=== PATIENT | male | born 1960 | race Caucasian/White ===

== ENCOUNTER 2017-10-14 15:07 | Emergency (ER) | payer OTHER ==
[2017-10-14] MEDS ORDERED: ALBUTEROL SO4 2.5/IPRATROPIUM 0.5 INH SOL 3 ML VIAL.NEB. NEB ONE ×2 (15:51→16:14)
--- NOTE | 2017-10-14 15:51 | PDOC ---
Rapid Medical Evaluation Time Seen by Provider: 10/14/17 15:46 Medical Evaluation: Allergies Allergy/AdvReac Type Severity Reaction Status Date / Time No Known Allergies Allergy Verified 09/11/15 12:09 10/14/17 15:46 I have performed a brief in-person evaluation of this patient. The patient presents with a chief complaint of: cold x several weeks, worse since saturday, saw PMD saturday and given methylpred, tessalon perles, albuterol, promethazine but not helping, was supposed to get x-rays but "place i went to x- ray machine wasn't working" Pertinent physical exam findings: cough, lungs tight I have ordered the following: CXR, duo neb The patient will proceed to the ED for further evaluation. Discharge Disposition - Diagnosis Cough - Referrals - Patient Instructions - Post Discharge Activity
[2017-10-14 15:54] VITALS: BP 155/75; PULSE 87; TEMP 98; BMI 24.3
--- NOTE | 2017-10-14 16:24 | PDOC ---
History of Present Illness - General Chief Complaint: Cold Symptoms Stated Complaint: CONGESTION, COUGH Time Seen by Provider: 10/14/17 15:46 History Source: Patient Exam Limitations: No Limitations - History of Present Illness Initial Comments: 10/14/17 16:24 Dates was seen by his PMD approximate 3 weeks ago, diagnosed with strep throat and given antibiotics for same. Also had issue with his teeth a few days later where he was seen by the dentist and prescribed amoxicillin which she completed that course as of 2 days ago. States over the same course of 3 weeks has persistent cough, shortness of breath, and mild bronchospasm. Returned to his PMD and received prescriptions for Proventil inhalers, Promethazine DM, Tessalon Perles, and a Medrol Dosepak which she has been taking now for approximately 3-4 days. Patient states coughed discontinued and went for chest x -ray at a facility that machinery was broken. Was advised by his PMD to come to emergency department to obtain this chest x-ray and reevaluation of persistent cough. Denies fever, denies any earache or sore throat pain. No one else at home sick. Patient is a business intelligence consultant for the [employer] Timing/Duration: reports: constant, changing over time, intermittent Associated Symptoms: reports: chest pain/soreness, cough, facial pain, fever/ chills, nasal congestion, nasal drainage Past History - Travel Traveled outside of the country in the last 30 days: No Close contact w/someone who was outside of country & ill: No - Past Medical History Allergies/Adverse Reactions: Allergies Allergy/AdvReac Type Severity Reaction Status Date / Time No Known Allergies Allergy Verified 09/11/15 12:09 Home Medications: Ambulatory Orders Albuterol Sulfate [Proair Hfa -] 1 - 2 inh PO TID 09/11/15 Benzonatate [Tessalon Pearls -] 100 mg PO TID 10/14/17 Methylprednisolone [Medrol Dose Al] 4 mg PO ASDIR 10/14/17 Promethazine HCl/Codeine [Prometh-Codein 6.25-10 mg/5 ml] 5 ml PO TID 10/14/17 CVA: Yes (TIA) COPD: No - Immunization History Immunization Up to Date: Yes - Suicide/Smoking/Psychosocial Hx Smoking Status: No Smoking History: Never smoked Have you smoked in the past 12 months: No Number of Cigarettes Smoked Daily: 0 Information on smoking cessation initiated: No Hx Alcohol Use: No Drug/Substance Use Hx: No Substance Use Type: None Review of Systems - Review of Systems Able to Perform ROS?: Yes Is the patient limited Fijian proficient: Yes Constitutional: Yes: Symptoms Reported, See HPI, Malaise. No: Fever HEENTM: Yes: Symptoms Reported, See HPI, Nose Congestion, Throat Pain Respiratory: Yes: Symptoms reported, See HPI, Cough. No: Wheezing ABD/GI: Yes: Symptoms Reported Musculoskeletal: Yes: Symptoms Reported All Other Systems: Reviewed and Negative *Physical Exam - Vital Signs Last Vital Signs Temp Pulse Resp BP Pulse Ox 98 F 87 20 155/75 97 10/14/17 15:51 10/14/17 15:51 10/14/17 15:51 10/14/17 15:51 10/14/17 15:51 - Physical Exam General Appearance: Yes: Nourished, Appropriately Dressed HEENT: positive: [place], Normal ENT Inspection, TMs Normal, Pharynx Normal, Rhinorrhea, Sinus Tenderness Neck: positive: Tender, Supple, Lymphadenopathy (R), Lymphadenopathy (L) Respiratory/Chest: positive: Lungs Clear, Normal Breath Sounds. negative: Wheezing Cardiovascular: positive: Regular Rate Gastrointestinal/Abdominal: positive: Soft. 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 Chest x-ray is negative for any infiltrates. Will have continue treatment *DC/Admit/Observation/Transfer Diagnosis at time of Disposition: Cough - Discharge Dispostion Disposition: HOME Condition at time of disposition: Stable Admit: No - Referrals Referrals: ON STAFF,NOT [Primary Care Provider] - - Patient Instructions Printed Discharge Instructions: DI for Viral Upper Respiratory Infection -- Adult Additional Instructions: Rest, drink lots of fluids: Teas, water, soups, Pedialyte Saltwater gargles Steamy showers/seem to face break up mucus Avoid contact with others until fevers and cough resolved Lots of handwashing and good hygiene Continue [id number] medications for symptomatic relief Tylenol or Motrin for fever and pain Continue albuterol nebulizers every 4-6 hours for the next 2 days then as needed for continued cough Prednisone as directed until completed Continue promethazine with codeine for severe cough Followup with private physician in one to 2 days Return to emergency department / pediatric hospital for worsened symptoms, fevers, dehydration - Post Discharge Activity Forms/Work/School Notes: Back to Work
== END 2017-10-14 17:33 | disposition home or self-care (01) ==
LOC: JERFT 15:07
PROC: 3E0F7GC Introduction of Other Therapeutic Substance into Respiratory Tract, Via Natural or Artificial Opening (ICD-10-PCS; principal; 2017-10-14)
DX: R05 Cough (principal); Z86.73 Personal history of transient ischemic attack (TIA), and cerebral infarction without residual deficits
CPT/HCPCS: 71046-TC-FY; 99281-25

== ENCOUNTER 2017-11-21 10:25 | Emergency (ER) | payer OTHER ==
[2017-11-21 10:32] VITALS: BP 136/80; PULSE 106; TEMP 99; BMI 29.2
[2017-11-21] MEDS ORDERED: ONDANSETRON 4 MG/2 ML VIAL IVPUSH ONE (12:07)
[2017-11-21] MEDS ORDERED: SODIUM CHLORIDE 1,000 ML IV ONE (12:07)
[2017-11-21] MEDS ORDERED: FAMOTIDINE 20 MG/50 ML IVPB 20 MG/50 ML MG IVPB ONE ×2 (12:07→13:26)
[2017-11-21] MEDS ORDERED: ACETAMINOPHEN 1000 MG/100 ML VIAL (NON FORMULARY) IVPB ONE (12:12)
--- NOTE | 2017-11-21 12:15 | PDOC ---
History of Present Illness - General History Source: Patient Exam Limitations: No Limitations - History of Present Illness Initial Comments: 11/21/17 13:22 The patient is a 56 year old male with a significant PMH of TIA and GERD who presents to the emergency department with abdominal cramping, nausea, diarrhea, and lightheadedness since this morning. The patient reports going to work but calling out shortly after due to his symptoms. He reports eating Italian food last night with his but reports his has not had the above symptoms. He describes the diarrhea as loose, soft stool with no blood. He endorses chills but denies fever. He denies recent travel. 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 The patient denies any congestion or cough. The patient denies fevers, vomit, and constipation. Denies chest pain, shortness of breath, headache, and dizziness. Denies dysuria, frequency, urgency, and hematuria. Allergies: NKA Past surgical history: Right knee surgery. Social history: No reported cigarette, alcohol, or drug use. PCP: Most recently Dr. Patel <Frankie Solitario - Last Filed: 11/21/17 13:23> <Jordan Phelps - Last Filed: 11/21/17 15:09> - General Chief Complaint: Weakness Stated Complaint: WEAKNESS, NAUSEA Time Seen by Provider: 11/21/17 11:58 Past History <Frankie Solitario - Last Filed: 11/21/17 13:23> - Past Medical History CVA: Yes (TIA) COPD: No - Immunization History Immunization Up to Date: Yes - Suicide/Smoking/Psychosocial Hx Smoking Status: No Smoking History: Never smoked Have you smoked in the past 12 months: No Number of Cigarettes Smoked Daily: 0 Hx Alcohol Use: No Drug/Substance Use Hx: No Substance Use Type: None <Jordan Phelps - Last Filed: 11/21/17 15:09> - Past Medical History Allergies/Adverse Reactions: Allergies Allergy/AdvReac Type Severity Reaction Status Date / Time No Known Allergies Allergy Verified 11/21/17 10:29 Home Medications: Ambulatory Orders Albuterol Sulfate [Proair Hfa -] 1 - 2 inh PO TID 09/11/15 Benzonatate [Tessalon Perle -] 100 mg PO TID 10/14/17 Promethazine HCl/Codeine [Prometh-Codein 6.25-10 mg/5 ml] 5 ml PO TID 10/14/17 Ondansetron [Zofran Odt -] 4 mg SL TID PRN #21 od.tablet 11/21/17 Review of Systems - Review of Systems Constitutional: Yes: Chills. No: Fever Respiratory: No: Cough, Shortness of Breath Cardiac (ROS): Yes: Lightheadedness. No: Chest Pain, Edema, Palpitations, Syncope ABD/GI: Yes: Diarrhea, Nausea. No: Blood Streaked Bowels, Vomiting : No: Dysuria, Frequency, Hematuria Musculoskeletal: Yes: Muscle Pain Neurological: No: Headache All Other Systems: Reviewed and Negative <Jordan Phelps - Last Filed: 11/21/17 15:09> *Physical Exam - Vital Signs Last Vital Signs Temp Pulse Resp BP Pulse Ox 99 F 106 H 18 136/80 96 11/21/17 10:29 11/21/17 10:29 11/21/17 10:29 11/21/17 10:29 11/21/17 10:29 - Physical Exam Comments: 11/21/17 13:22 GENERAL: The patient is awake, alert, and fully oriented, in no acute distress. HEAD: Normal with no signs of trauma. EYES: Pupils equal, round and reactive to light, extraocular movements intact, sclera anicteric, conjunctiva clear with no pallor. ENT: Ears normal, nares patent, oropharynx clear without exudates. Moist mucous membranes. NECK: Normal range of motion, supple without lymphadenopathy, JVD, or masses. LUNGS: Breath sounds equal, clear to auscultation bilaterally. No wheeze/ crackles. HEART: Regular rate and rhythm, normal S1 and S2 without murmur or rub. ABDOMEN: Soft/nontender/nondistended. BS wnl. No guarding or rebound. No palpable masses. No hepatosplenomegaly. EXTREMITIES: Normal range of motion, no edema. No clubbing or cyanosis. No cords, erythema, or tenderness. NEUROLOGICAL: Cranial nerves II through XII grossly intact. Normal speech, normal gait. PSYCH: Normal mood, normal affect. SKIN: Warm, Dry, normal turgor, no rashes or lesions noted. <Frankie Solitario - Last Filed: 11/21/17 13:23> - Vital Signs Last Vital Signs Temp Pulse Resp BP Pulse Ox 99 F 106 H 18 136/80 96 11/21/17 10:29 11/21/17 10:29 11/21/17 10:29 11/21/17 10:29 11/21/17 10:29 <Jordan Phelps - Last Filed: 11/21/17 15:09> Heart Score/ECG Review #1 ECG reviewed & interpreted by me at: 13:35 General ECG Interpretation: Sinus Rhythm, Normal Rate (slight tachy at 105), Normal Intervals (qtc 425), No acute ischemic changes <Jordan Phelps - Last Filed: 11/21/17 15:09> ED Treatment Course - LABORATORY CBC & Chemistry Diagram: 11/21/17 13:06 11/21/17 13:06 <Jordan Phelps - Last Filed: 11/21/17 15:09> Medical Decision Making - Medical Decision Making 11/21/17 12:12 A portion of this note was documented by scribe services under my direction. I have reviewed the details of the note, within reason, and agree with the documentation with the following case summary and management plan written by me. Healthy 56-year-old male presents with abdominal cramps, nausea, diarrhea, and lightheadedness since awakening this morning. Patient was in his usual state of normal health, had Italian food for dinner with his , awoke this morning with the above complaints. Diarrhea was loose but nonbloody, has no symptoms. Chills but no fever, denies any travel. Works as [employer] employee and does have contact with many individuals daily, had a brief antibiotic course about one month ago in the setting of a tooth extraction. The cramps are generalized, intermittent, not associated with any persistent pain. Last colonoscopy was normal except for benign polyps, no abdominal surgical history or recurrent pathology. Temp 99, heart rate 100 Well-appearing, moist mucosa Heart and lungs are clear and normal Abdomen is soft/nontender/nondistended, no guarding or rebound 56-year-old male with nonspecific nausea/diarrhea/abdominal cramping/ lightheadedness with low-grade temp that began this morning, no focal findings or red flags on history or physical exam. Presentation could be more consistent with early viral syndrome, possible gastroenteritis. Labs EKG IV fluids, antiemetic, Tylenol, antacids Reassess 11/21/17 14:25 labs wnl, no leukocytosis. feels much better after meds and IVF. tolerating PO, abd remains benign without further diarrhea/cramps. Agrees with d/c plan on anti-emetic, understands return criteria. 11/21/17 15:08 UA clear <Jordan Phelps - Last Filed: 11/21/17 15:09> *DC/Admit/Observation/Transfer - Attestations Scribe Attestion: 11/21/17 13:22 Documentation prepared by Frankie Solitario, acting as medical fee clerk for Jordan Phelps MD. <Frankie Solitario - Last Filed: 11/21/17 13:23> <Jordan Phelps - Last Filed: 11/21/17 15:09> Diagnosis at time of Disposition: Diarrhea Qualifiers: Diarrhea type: unspecified type Qualified Code(s): R19.7 - Diarrhea, unspecified - Discharge Dispostion Disposition: HOME Condition at time of disposition: Improved - Prescriptions Prescriptions: Ondansetron [Zofran Odt -] 4 mg SL TID PRN #21 od.tablet PRN Reason: Nausea - Referrals Referrals: Christofer Jordan MD [Staff Physician] - - Patient Instructions Printed Discharge Instructions: DI for Diarrhea and Traveler's Diarrhea -- Adult Additional Instructions: Activity as tolerated. Stay hydrated. Blood tests and a urine test today showed no acute abnormalities. The other urine tests will be back in 2-3 days. Your symptoms are likely due to a viral infection, possibly affecting your intestines. This should resolve over the next 2-3 days, take Zofran as prescribed as needed for nausea. Continue your medications as previously prescribed by your physician. You should follow up with your primary doctor as soon as possible regarding today's emergency department visit. If you would like a new primary doctor, consider calling Dr. Jordan in our clinic. Return to the emergency department for any new or concerning symptoms, particularly persistent or worsening abdominal pain, bloody stool or persistent vomiting, fevers or chills.
[2017-11-21] MEDS ORDERED: ONDANSETRON 4 MG/2 ML VIAL ONE (13:26)
[2017-11-21] MEDS ORDERED: ACETAMINOPHEN INJECTION 100 ML IVPB ONE (13:26)
[2017-11-21 13:31] LABS: BASO % 0.2 % (0-2.0); HEMOGLOBIN 15.4 GM/dL (11.7-16.9); LYMPH % 5.8 % (8-40); MCH 28.8 pg (25.7-33.7); MCHC 34.2 g/dl (32.0-35.9); MEAN CELL VOLUME 84.3 fl (80-96); MEAN PLT VOLUME 7.8 fl (7.5-11.1); MONO % 2.8 % (3.8-10.2); NEUT % 91.2 % (42.8-82.8); PLATELET COUNT 187 K/MM3 (134-434); RBC 5.33 M/mm3 (4.00-5.60); WHITE BLOOD COUNT 8.6 K/mm3 (4.0-10.0)
[2017-11-21 14:02] LABS: ALBUMIN 3.8 g/dl (3.4-5.0); ANION GAP 2 (8-16); BILIRUBIN,TOTAL 0.6 mg/dL (0.2-1.0); BLOOD UREA NITROGEN 13 mg/dL (7-18); CALCIUM 8.2 mg/dL (8.5-10.1); CHLORIDE 106 mmol/L (98-107); CO2 31 mmol/L (21-32); CREATININE 0.9 mg/dL (0.7-1.3); GLUCOSE,RANDOM 100 mg/dL (74-106); POTASSIUM 4.1 mmol/L (3.5-5.1); SGOT/AST 19 U/L (15-37); SGPT/ALT 24 U/L (12-78); SODIUM 139 mmol/L (136-145); TOT PROT 6.8 g/dl (6.4-8.2)
[2017-11-21 14:05] LABS: ALK PHOS 58 U/L (45-117)
[2017-11-21 15:00] LABS: URINE APPEARANCE CLEAR; URINE BILIRUBIN NEGATIVE (<2.0 mg/dL); URINE BLOOD NEGATIVE (NEGATIVE); URINE COLOR YELLOW; URINE GLUCOSE (UA) NEGATIVE (NEGATIVE); URINE KETONE NEGATIVE (NEGATIVE); URINE LEUK ESTERASE NEGATIVE (NEGATIVE); URINE NITRITE NEGATIVE (NEGATIVE); URINE PROTEIN NEGATIVE (NEGATIVE)
--- NOTE | 2017-11-22 10:00 | EKG ---
Test Reason : Blood Pressure : / mmHG Vent. Rate : 105 BPM Atrial Rate : 105 BPM P-R Int : 138 ms QRS Dur : 092 ms QT Int : 322 ms P-R-T Axes : 057 040 024 degrees QTc Int : 425 ms SINUS TACHYCARDIA OTHERWISE NORMAL ECG NO PREVIOUS ECGS AVAILABLE Confirmed by YUNIOR MCGINNIS MD ([id number]) on 11/22/2017 9:59:41 AM Referred By: Confirmed By:YUNIOR MCGINNIS MD
== END 2017-11-21 15:22 | disposition home or self-care (01) ==
LOC: JER 10:25
PROC: 3E033GC Introduction of Other Therapeutic Substance into Peripheral Vein, Percutaneous Approach (ICD-10-PCS; principal; 2017-11-21)
PROC: 3E033GC Introduction of Other Therapeutic Substance into Peripheral Vein, Percutaneous Approach (ICD-10-PCS; 2017-11-21)
PROC: 3E033NZ Introduction of Analgesics, Hypnotics, Sedatives into Peripheral Vein, Percutaneous Approach (ICD-10-PCS; 2017-11-21)
DX: R19.7 Diarrhea, unspecified (principal); R42 Dizziness and giddiness; K21.9 Gastro-esophageal reflux disease without esophagitis; Z86.73 Personal history of transient ischemic attack (TIA), and cerebral infarction without residual deficits
CPT/HCPCS: 36415; 80053; 81003; 82550; 83690; 84484; 85025; 93005; 93010; 99281-25; J0131; J7030

== ENCOUNTER 2018-09-02 14:56 | Emergency (ER) | payer OTHER ==
--- NOTE | 2018-09-02 15:07 | PDOC ---
Rapid Medical Evaluation Chief Complaint: Sore Throat Time Seen by Provider: 09/02/18 15:04 Medical Evaluation: Allergies Allergy/AdvReac Type Severity Reaction Status Date / Time No Known Allergies Allergy Verified 11/21/17 10:29 09/02/18 15:05 I performed a brief in person evaluation. CC: Sore throat HPI: Pt is a 57 YO male with a hx of a sore throat x 1 day. Pt states he was on abx a week ago for a "sore throat." PE: Skin: Clear Lungs: Clear Heart: RRR MS: Moves all extremities without difficulty Neuro: Alert Psych: Appropriate affect RBS ordered. Pt will go to [facility] for further evaluation. 09/02/18 15:07 Discharge Disposition - Diagnosis Pharyngitis Qualifiers: Pharyngitis/tonsillitis etiology: other specified organisms Qualified Code(s): J02.8 - Acute pharyngitis due to other specified organisms - Referrals - Patient Instructions - Post Discharge Activity
[2018-09-02 15:08] VITALS: BP 124/79; PULSE 73; TEMP 97.6
--- NOTE | 2018-09-02 15:35 | PDOC ---
History of Present Illness - General Chief Complaint: Sore Throat Stated Complaint: SORE THROAT Time Seen by Provider: 09/02/18 15:04 - History of Present Illness Initial Comments: 09/02/18 15:36 57-year-old male with sore throat times one day. He has no comorbidities. Past History - Past Medical History Allergies/Adverse Reactions: Allergies Allergy/AdvReac Type Severity Reaction Status Date / Time No Known Allergies Allergy Verified 11/21/17 10:29 Home Medications: Ambulatory Orders NK [No Known Home Medication] 09/02/18 CVA: Yes (TIA) COPD: No Disorders: No Psychiatric Problems: No - Immunization History Immunization Up to Date: Yes - Suicide/Smoking/Psychosocial Hx Smoking Status: No Smoking History: Never smoked Have you smoked in the past 12 months: No Number of Cigarettes Smoked Daily: 0 Information on smoking cessation initiated: No Hx Alcohol Use: No Drug/Substance Use Hx: No Substance Use Type: None Review of Systems - Review of Systems Constitutional: No: Fever HEENTM: Yes: Throat Pain *Physical Exam - Vital Signs Last Vital Signs Temp Pulse Resp BP Pulse Ox 97.6 F 73 18 124/79 97 09/02/18 15:05 09/02/18 15:05 09/02/18 15:05 09/02/18 15:05 09/02/18 15:05 - Physical Exam Comments: 09/02/18 15:37 HEAD: NC/AT EYES: Conjuntiva clear Ears: Canals and TM's normal NOSE: No d/c THROAT: Moist mucous membrances, oral pharanx midly erythemic, uvula midline NECK: Supple without adenopathy CARDIAC: S1 S2 LUNGS: CTA Full and Equal breath sounds ABDOMEN: Soft NT ND MS: Full ROM in all joints without edema NEUROLOGIC: No gross sensory or motor deficits, NVID SKIN: Normal color and temperature no lesions or rashes Moderate Sedation - Procedure Monitoring Vital Signs: Procedure Monitoring Vital Signs Temperature 97.6 F 09/02/18 15:05 Pulse Rate 73 09/02/18 15:05 Respiratory Rate 18 09/02/18 15:05 Blood Pressure 124/79 09/02/18 15:05 O2 Sat by Pulse Oximetry (%) 97 09/02/18 15:05 *DC/Admit/Observation/Transfer Diagnosis at time of Disposition: Pharyngitis Qualifiers: Pharyngitis/tonsillitis etiology: other specified organisms Qualified Code(s): J02.8 - Acute pharyngitis due to other specified organisms - Discharge Dispostion Disposition: HOME Condition at time of disposition: Stable Decision to Admit order: No - Referrals Referrals: Cynthia Childers MD [Staff Physician] - - Patient Instructions Printed Discharge Instructions: Viral Pharyngitis, DI for Viral Pharyngitis Additional Instructions: Your rapid strep test today was negative. He may take Tylenol and Motrin for pain as directed. Follow-up with primary care physician in one to 2 days for further evaluation and treatment options. Warm salt water gargles will help you with your throat discomfort. - Post Discharge Activity
== END 2018-09-02 15:42 | disposition home or self-care (01) ==
LOC: JERFT 14:56
DX: J02.8 Acute pharyngitis due to other specified organisms (principal)
CPT/HCPCS: 87070; 87880; 99281-25

== ENCOUNTER 2019-11-20 17:50 | Emergency (ER) | payer OTHER ==
--- NOTE | 2019-11-20 18:17 | PDOC ---
Rapid Medical Evaluation Time Seen by Provider: 11/20/19 18:16 Medical Evaluation: Allergies Allergy/AdvReac Type Severity Reaction Status Date / Time No Known Allergies Allergy Verified 11/21/17 10:29 11/20/19 18:19 HPI: COVID-19 CDC guideline data points: The patient is a 58-year-old male presents with suspected COVID-19 with associated symptoms of fever, dry cough, SOB, left upper back pain x 3 days. Exposed to niece with confirmed disease. ROS: NEGATIVE: difficulty breathing, shortness of breath, chest pain, lightheadedness, dizziness, nausea, vomiting and diarrhea. Other 12 point ROS reviewed and negative. Exam: General: NAD, Well-Appearing, Awake, Alert Oriented x3. Vital signs stable. ENT: No rhinorrhea or nasal congestion. Neck: FROM, no midline tenderness. Lungs: RML ronchi. Normal excursion. Patient is able to speak in full sentences. Heart: HR: Regular rhythm, S1-S2 present, no murmurs rubs or gallops. Abdomen: Non-distended. MSK/Extremities: No decrease ROM, No obvious deformities. No obvious cyanosis noted. Neuro: Normal Gait, Cranial Nerves II through XII Grossly Intact. Skin: No obvious rashes, bruising. Color Normal Appearing. Assessment/Plan: No recent travel No comorbidities Known COVID exposure Patient does not meet testing criteria at this time ASSESSMENT: Denies recent travel and known Covid exposure. Treatment: CXR r/o infiltrate 11/20/19 18:24 Discharge Disposition - Diagnosis Cough - Referrals Referrals: Rupert Cadet MD [Primary Care Provider] - - Patient Instructions Printed Discharge Instructions: [facility]Coronavirus Instructions, [facility] COVID-19 Isolation Protocol Additional Instructions: You were seen for your cough and possible Coronavirus (COVID-19) Please call the [facility] testing center to make an appointment at or you can call [facility] at from 8:30 AM to 6 PM; or you can visit the [facility] website: [email or web address] for more information about testing at the [facility]. Take Tylenol 650 mg every 6 hours as needed for fever or pain. You may take Robitussin or other [id number] cough syrup. Follow the dosing instructions on the bottle. Warm tea, honey, and salt water gargles may help your symptoms. Please take precautions and self quarantine for 2 weeks and follow-up with your primary care doctor and the Department of Health. Return to the nearest emergency department for shortness of breath, difficulty breathing, chest pain, or if you have any changes in your symptoms. - Post Discharge Activity Work/School Note: Back to Work
[2019-11-20 18:25] VITALS: BP 129/103; PULSE 90; TEMP 98.1
--- NOTE | 2019-11-20 19:28 | PDOC ---
*Physical Exam - Vital Signs Last Vital Signs Temp Pulse Resp BP Pulse Ox 98.1 F 90 17 129/103 H 99 11/20/19 18:21 11/20/19 18:21 11/20/19 18:21 11/20/19 18:21 11/20/19 18:21 ED Treatment Course - RADIOLOGY Radiology Studies Ordered: Category Date Time Status CXRPORT [CHEST X-RAY PORTABLE*] [RAD] Stat Radiology 11/20/19 18:36 Taken Medical Decision Making - Medical Decision Making 11/20/19 19:30 CXR- No focal inflitrate noted. No significant change from study performed 10/14/[address] [facility]. Discharge - Discharge Information Problems reviewed: Yes Clinical Impression/Diagnosis: Cough Condition: Stable Disposition: HOME - Admission No - Follow up/Referral Referrals: Rupert Cadet MD [Primary Care Provider] - - Patient Discharge Instructions Patient Printed Discharge Instructions: [facility]Coronavirus Instructions, [facility] COVID-19 Isolation Protocol Additional Instructions: You were seen for your cough and possible Coronavirus (COVID-19) Please call the [facility] testing center to make an appointment at or you can call [facility] at from 8:30 AM to 6 PM; or you can visit the [facility] website: [email or web address] for more information about testing at the [facility]. Take Tylenol 650 mg every 6 hours as needed for fever or pain. You may take Robitussin or other [id number] cough syrup. Follow the dosing instructions on the bottle. Warm tea, honey, and salt water gargles may help your symptoms. Please take p recautions and self quarantine for 2 weeks and follow-up with your primary care doctor and the Department of Health. Return to the nearest emergency department for shortness of breath, difficulty breathing, chest pain, or if you have any changes in your symptoms. - Post Discharge Activity Work/Back to School Note: Back to Work
== END 2019-11-20 19:32 | disposition home or self-care (01) ==
LOC: JER 17:50
DX: R05 Cough (principal); Z20.828 Contact with and (suspected) exposure to other viral communicable diseases
CPT/HCPCS: 71045-TC-FY; 99283-25